=== PATIENT | male | born 1965 ===

== ENCOUNTER 2016-07-27 15:27 | Emergency (ER) | payer OTHER ==
--- NOTE | 2016-07-27 17:09 | UC ---
Throat Pain/Nasal Lenny HPI - HPI Summary HPI Summary: SIX DAYS OF RIGHT SIDED FACIAL PAIN AND PRESSURE, (AT RIGHT MAXILLARY ASPECT) NEAR NOSE. HAD SWELLING OF RIGHT LOWER EYELID, SINCE RESOLVED. PAIN RADIATING TO RIGHT UPPER JAW WELL TO RIGHT SIDE AND BACK OF HEAD. NO PAIN WITH EYE MOVEMENT. NO DISCHARGE FROM EYE. NO FEVER. - History of Current Complaint Chief Complaint: UC Stated Complaint: SINUS HEADACHE Time Seen by Provider: 07/27/16 16:00 Hx Obtained From: Patient Onset/Duration: Gradual Onset, Lasting Weeks, Still Present Severity: Moderate Pain Intensity: 5 Pain Scale Used: 0-10 Numeric Cough: Nonproductive Associated Signs & Symptoms: Positive: Sinus Discomfort, Nasal Discharge - Epiglottits Risk Factors Epiglottis Risk Factors: Negative - Allergies/Home Medications Allergies/Adverse Reactions: Allergies Allergy/AdvReac Type Severity Reaction Status Date / Time No Known Allergies Allergy Verified 07/27/16 16:12 Home Medications: Home Medications Hydrochlorothiazide TAB* [Hydrodiuril TAB*] 25 mg PO DAILY 07/27/16 [History Confirmed 07/27/16] Lisinopril [Lisinopril 40 MG-] 40 mg PO DAILY 07/27/16 [History Confirmed ] Pravastatin (NF) [Pravachol (NF)] 20 mg PO 1700 07/27/16 [History Confirmed ] Tamsulosin HCl [Flomax] 0.4 mg 07/27/16 [History] PMH/Surg Hx/FS Hx/Imm Hx Previously Healthy: Yes Cardiovascular History Of: Reports: Hypertension - Surgical History Surgical History: Yes Surgery Procedure, Year, and Place: UPP; bilateral knee - Family History Known Family History: Negative: Hypertension, Respiratory Disease - Social History Occupation: Employed Full-time Lives: With Family Alcohol Use: Daily Substance Use Type: Marijuana Smoking Status (MU): Never Smoked Tobacco Review of Systems Constitutional: Negative Skin: Negative Eyes: Negative ENT: Nasal Discharge Respiratory: Cough Cardiovascular: Negative Gastrointestinal: Negative Genitourinary: Negative Motor: Negative Neurovascular: Negative Musculoskeletal: Negative Neurological: Negative Psychological: Negative All Other Systems Reviewed And Are Negative: Yes Physical Exam Triage Information Reviewed: Yes Appearance: Well-Appearing, Well-Nourished, Pain Distress - MILD Vital Signs: Initial Vital Signs Temp 98.5 F 07/27/16 16:01 Pulse 69 07/27/16 16:01 Resp 16 07/27/16 16:01 BP 150/94 07/27/16 16:01 Pulse Ox 97 07/27/16 16:01 Vital Signs Reviewed: Yes Eye Exam: Normal Eyes: Positive: Conjunctiva Clear ENT: Positive: Pharynx normal, Nasal congestion, TM bulging - RIGHT, TM dull, Other: - RIGHT MAXILLARY TENDERNESS Dental Exam: Normal Neck exam: Normal Neck: Positive: Supple, Nontender, No Lymphadenopathy. Negative: Nuchal Rigidity, Tenderness @ Respiratory Exam: Normal Respiratory: Positive: Chest non-tender, Lungs clear, Normal breath sounds, No respiratory distress, No accessory muscle use Cardiovascular Exam: Normal Cardiovascular: Positive: RRR, No Murmur, Pulses Normal, Brisk Capillary Refill Abdominal Exam: Normal Abdomen Description: Positive: Nontender, No Organomegaly, Soft Musculoskeletal Exam: Normal Neurological Exam: Normal Psychological Exam: Normal Skin Exam: Normal Throat Pain/Nasal Course/Dx - Differential Dx/Diagnosis Differential Diagnosis/HQI/PQRI: Pharyngitis, Sinusitis, Tonsillitis, URI Provider Diagnoses: SINUSITIS Discharge - Discharge Plan Condition: Stable Disposition: HOME Prescriptions: DOXYcycline CAP(*) [DOXYcycline 100MG CAP(*)] 100 mg PO BID #20 cap Patient Education Materials: Sinusitis (ED)
== END 2016-07-27 16:54 | disposition home or self-care (01) ==
LOC: UCEAST 15:27
DX: J32.9 Chronic sinusitis, unspecified (principal); I10 Essential (primary) hypertension; F12.90 Cannabis use, unspecified, uncomplicated
CPT/HCPCS: 99202; G0463